=== PATIENT | male | born 1960 | race Caucasian/White ===

== ENCOUNTER → 2018-07-08 12:22 | Outpatient (CLI) | payer OTHER | END | disposition home or self-care (01) | LOC: D.CT 12:22 | DX: R91.1 Solitary pulmonary nodule (principal) ==

== ENCOUNTER 2018-09-30 07:59 | Inpatient (IN) | payer OTHER ==
[2018-09-30] MEDS ORDERED: LODINE400 MG (08:05)
[2018-09-30] MEDS ORDERED: ALBUTEROL SULF8.5 GM INH (08:05)
[2018-09-30] MEDS ORDERED: DIOVAN160 MG (08:06)
[2018-09-30] MEDS ORDERED: ULTRAM50 MG PO ×2 (08:06→10:50)
[2018-09-30] MEDS ORDERED: OMEPRAZOLE20 M1 (08:06)
[2018-09-30] MEDS ORDERED: ZOCOR20 MG (08:06)
[2018-09-30] MEDS ORDERED: SPIRIVA18 MCG INH ×2 (08:07→10:51)
[2018-09-30] MEDS ORDERED: NASONEX NASAL S17 GM (08:07)
[2018-09-30 09:05] LABS: BASOPHILS 0.2 % (0-2); EOSINOPHILS 0.5 % (0-7); HEMATOCRIT 43.6 % (42.0-54.0); HEMOGLOBIN 15.1 g/dL (13.5-17.5); IMMATURE GRANULOCYTES 0.5 % (0-5); LYMPHOCYTES 12.8 % (15-50); MCHC 34.6 g/dL (31.0-37.0); MCV 86.7 fL (80.0-100.0); MEAN PLATELET VOLUME 10.5 fL (7.4-10.4); MONOCYTES 4.1 % (2-11); NEUTROPHILS 81.9 % (40-80); PLATELET COUNT 256 10x3/uL (130-400); RBC 5.03 10x6/uL (4.20-6.10); RDW 12.7 % (11.5-14.5); WBC 12.4 10x3/uL (4.8-10.8)
[2018-09-30 09:09] LABS: INR 0.93 (0.85-1.17); PROTIME 11.9 SECONDS (11.6-15.0)
[2018-09-30 09:10] LABS: APTT 30.5 SECONDS (22.8-39.4)
[2018-09-30 09:11] LABS: D-DIMER-QUANTITATIVE 0.53 ug/mLFEU (0.20-0.54)
[2018-09-30 09:12] LABS: ALBUMIN 3.6 g/dL (3.4-5.0); ALKALINE PHOSPHATASE 99 U/L (46-116); ALT (SGPT) 50 U/L (10-68); BILIRUBIN - TOTAL 0.39 mg/dL (0.2-1.3); CALC OSMOLALITY 276 mosm/kg (275-300); CALCIUM 8.9 mg/dL (8.5-10.1); CARBON DIOXIDE 27.8 mmol/L (21.0-32.0); CHLORIDE - SERUM 104 mmol/L (98-107); GLUCOSE 110 mg/dL (74-106); PROTEIN - SERUM 7.7 g/dL (6.4-8.2); SODIUM 139 mmol/L (136-145); UREA NITROGEN 8 mg/dL (7-18); eGFR NON AFRICAN AMERICAN 81 mL/min (90-120)
[2018-09-30 09:28] LABS: CKMB 0.9 U/L (0.0-3.6); CREATINE KINASE 48 UL (21-232); PRO BNP 116 pg/mL (0-125); TROPONIN-I < 0.017 ng/mL (0.000-0.060)
[2018-09-30] MEDS ORDERED: MOBIC7.5 MG PO (10:49)
[2018-09-30] MEDS ORDERED: LODINE400 MG PO (10:49)
[2018-09-30] MEDS ORDERED: ALDACTONE25 MG PO (10:50)
[2018-09-30] MEDS ORDERED: DIOVAN160 MG PO (10:50)
[2018-09-30] MEDS ORDERED: OMEPRAZOLE20 M1 PO (10:51)
[2018-09-30] MEDS ORDERED: ZOCOR20 MG PO (10:51)
[2018-09-30] MEDS ORDERED: NASONEX NASAL S17 GM NS (10:53)
--- NOTE | 2018-09-30 11:06 | MORECARE ---
CASE MANAGEMENT DISCHARGE SUMMARY PATIENT: RAYMOND ALBERTS UNIT: [id number] ADM DATE: 09/30/18 AGE: 58 : 58 SEX: M ROOM/BED: D.2102 AUTHOR: ULI SOSA PHYSICIAN: REFERRING PHYSICIAN: ANGELO RODRIGUEZ MD DATE OF SERVICE: 09/30/18 Discharge Plan Patient Name: RAYMOND ALBERTS [facility] [facility] 1960 Planned Disposition: Home Anticipated Discharge Date: 10/02/18 Discharge Date: Expected LOS: 2 Initial Reviewer: [email or web address] Initial Review Date: 09/30/2018 Generated: 09/30/18 12:06 pm Patient Name: RAYMOND ALBERTS Page 93982 at 1106 All edits/amendments must be made on the electronic document DICTATION DATE: 09/30/181105 AUTO EMISSIONS TECHNICIAN: RENZO 09/30/18 1106 RPT#: [id number] DC DATE: STATUS: ADM IN [facility] [address] [place] [address] END OF REPORT
[2018-09-30 11:19] VITALS: BP 156/84
--- NOTE | 2018-09-30 11:33 | MORECARE ---
CASE MANAGEMENT DISCHARGE SUMMARY PATIENT: RAYMOND ALBERTS UNIT: [id number] ADM DATE: 09/30/18 AGE: 58 : 58 SEX: M ROOM/BED: D.2102 AUTHOR: IAN,DOC PHYSICIAN: REFERRING PHYSICIAN: ANGELO RODRIGUEZ MD DATE OF SERVICE: 09/30/18 Discharge Plan Patient Name: RAYMOND ALBERTS Facility: [facility]:[place] : 1960 Planned Disposition: Home Anticipated Discharge Date: 10/02/18 Discharge Date: Expected LOS: 2 Initial Reviewer: [email or web address] Initial Review Date: 09/30/2018 Generated: 09/30/18 12:33 pm DCP- Discharge Planning Updated by [email or web address]: Edwina Plascencia on 09/30/18 10:[address] Patient Name: RAYMOND ALBERTS Admission Status: ER Accout number: [id number] Admission Date: 09-30-2018 : 1960 Admission Diagnosis: Attending: ANGELO RODRIGUEZ Current LOS: 1 Anticipated DC Date: 10-02-2018 Planned Disposition: Home Primary Insurance: [facility] Discharge Planning Comments: CM met with patient to complete initial dc planning assessment. CM educated patient on the CM role and verbal consent given by patient to complete assessment. Patient lives at home with his girlfriend. At discharge patient plans to return home and feels this is a safe discharge. CM discussed availability of home health, rehab services, and medical equipment. Patient reports that Dr. Ricks's office ordered him a nebulizer on Sunday through [email or web address] but it hasn't been delivered at this time. Cm contacted [facility], spoke to Kaia, who reported they did receive and order but it was an incomplete order and they have faxed it back to Dr. Ricks's office. CM called Dr. Ricks's office, spoke to Marcy who stated she did find the order and she would have Dr. Ricks sign it today before he leaves the clinic. GARRISON has notified Keturah JI of this information to ensure it is delivered prior to discharge. nesha reported that the patient has had three days of rocephin injections at their clinic prior to today. Patient denied further dc needs at this time. CM will continue to follow and will assist as needed with dc plans/needs. Migration Agent: Edwina Plascencia RN, [facility] DCPIA - Discharge Planning Initial Assessment Updated by [email or web address]: Edwina Plascencia on 09/30/18 11:28 am * Is the patient Alert and Oriented? Yes * How many steps to enter\exit or inside your home? three * PCP Dr. Ricks * Pharmacy [facility] * Preadmission Environment Home with Family * ADLs Independent * Equipment Other * Other Equipment Blood pressure cuff Nebulizer being ordered by Dr Ricks Office. * List name and contact numbers for known caregivers / representatives who currently or will assist patient after discharge: Ger Dozier- girlfriend - [phone] * Verbal permission to speak to the caregivers and representatives has been obtained from the patient. Yes * Community resources currently utilized None * Additional services required to return to the preadmission environment? Yes * Can the patient safely return to the preadmission environment? Yes * Has this patient been hospitalized within the prior 30 days at any hospital? No Last DP export: 09/30/18 10:06 a Patient Name: RAYMOND ALBERTS Page 18310 at 1133 All edits/amendments must be made on the electronic document DICTATION DATE: 09/30/181131 ENGINE BOSS: RENZO 09/30/181131 RPT#: [id number] DC DATE: STATUS: ADM IN [facility] [address] [place] [address] END OF REPORT
[2018-09-30 14:01] VITALS: BMI 25.1
[2018-09-30 14:46] VITALS: BP 144/80
[2018-09-30 15:02] LABS: CKMB 0.7 U/L (0.0-3.6); CREATINE KINASE 44 UL (21-232); TROPONIN-I < 0.017 ng/mL (0.000-0.060)
[2018-09-30 20:00] VITALS: BP 149/84
[2018-09-30 20:34] LABS: CKMB 1.2 U/L (0.0-3.6); CREATINE KINASE 37 UL (21-232)
[2018-09-30 20:42] LABS: TROPONIN-I < 0.017 ng/mL (0.000-0.060)
[2018-10-01 00:59] VITALS: BP 114/66
[2018-10-01 02:11] LABS: CKMB 1.4 U/L (0.0-3.6); CREATINE KINASE 37 UL (21-232); TROPONIN-I 0.032 ng/mL (0.000-0.060)
[2018-10-01 05:49] VITALS: BP 105/64
[2018-10-01 07:30] LABS: BASOPHILS 0.1 % (0-2); EOSINOPHILS 0 % (0-7); HEMATOCRIT 41.4 % (42.0-54.0); HEMOGLOBIN 13.9 g/dL (13.5-17.5); IMMATURE GRANULOCYTES 0.6 % (0-5); LYMPHOCYTES 5.5 % (15-50); MCH 29.3 pg (26.0-34.0); MCHC 33.6 g/dL (31.0-37.0); MCV 87.2 fL (80.0-100.0); MEAN PLATELET VOLUME 10.6 fL (7.4-10.4); MONOCYTES 2.4 % (2-11); NEUTROPHILS 91.4 % (40-80); PLATELET COUNT 282 10x3/uL (130-400); RBC 4.75 10x6/uL (4.20-6.10); RDW 12.9 % (11.5-14.5)
[2018-10-01 07:40] LABS: WBC 19.7 10x3/uL (4.8-10.8)
[2018-10-01 07:42] LABS: ALBUMIN 3.3 g/dL (3.4-5.0); ALKALINE PHOSPHATASE 91 U/L (46-116); ALT (SGPT) 39 U/L (10-68); BILIRUBIN - TOTAL 0.16 mg/dL (0.2-1.3); CALC OSMOLALITY 288 mosm/kg (275-300); CALCIUM 8.5 mg/dL (8.5-10.1); CARBON DIOXIDE 23.8 mmol/L (21.0-32.0); CHLORIDE - SERUM 108 mmol/L (98-107); CKMB 1.7 U/L (0.0-3.6); CREATINE KINASE 38 UL (21-232); GLUCOSE 152 mg/dL (74-106); POTASSIUM - SERUM 3.8 mmol/L (3.5-5.1); PROTEIN - SERUM 7.1 g/dL (6.4-8.2); SODIUM 144 mmol/L (136-145); TROPONIN-I 0.035 ng/mL (0.000-0.060); UREA NITROGEN 11 mg/dL (7-18); eGFR NON AFRICAN AMERICAN 81 mL/min (90-120)
[2018-10-01 10:25] VITALS: BP 121/67
[2018-10-01] MEDS ORDERED: MUCINEX DM ER1 EAC1 PO (11:46)
[2018-10-01] MEDS ORDERED: SINGULAIR10 MG PO (11:46)
[2018-10-01] MEDS ORDERED: DALIRESP500 MCG PO (11:46)
[2018-10-01] MEDS ORDERED: PREDNISONE10 MG PO (11:47)
[2018-10-01] MEDS ORDERED: DOXYCYCLINE HY100 M2 PO (11:47)
[2018-10-01] MEDS ORDERED: Tessalon Perle PO (11:47)
[2018-10-01] MEDS ORDERED: TESSALON PERLE100 MG PO (11:49)
[2018-10-01] MEDS ORDERED: BUTALB-APAP-CA1 EACH PO (12:24)
[2018-10-01 15:55] VITALS: BP 132/65
--- NOTE | 2018-10-02 08:04 | MORECARE ---
CASE MANAGEMENT DISCHARGE SUMMARY PATIENT: RAYMOND ALBERTS UNIT: [id number] ADM DATE: 09/30/18 AGE: 58 : 58 SEX: M ROOM/BED: D.2102 AUTHOR: IAN,DOC PHYSICIAN: REFERRING PHYSICIAN: ANGELO RODRIGUEZ MD DATE OF SERVICE: 10/02/18 Discharge Plan Patient Name: RAYMOND ALBERTS Facility: [facility]:[place] : 1960 Planned Disposition: Home Anticipated Discharge Date: 10/01/18 Discharge Date: 10/01/2018 Expected LOS: 1 Initial Reviewer: [email or web address] Initial Review Date: 09/30/2018 Generated: 10/02/18 9:04 am DCP- Discharge Planning Updated by [email or web address]: Edwina Plascencia on 09/30/18 10:[address] Patient Name: RAYMOND ALBERTS Admission Status: ER Accout number: [id number] Admission Date: 09-30-2018 : 1960 Admission Diagnosis: Attending: ANGELO RODRIGUEZ Current LOS: 1 Anticipated DC Date: 10-02-2018 Planned Disposition: Home Primary Insurance: [facility] Discharge Planning Comments: CM met with patient to complete initial dc planning assessment. CM educated patient on the CM role and verbal consent given by patient to complete assessment. Patient lives at home with his girlfriend. At discharge patient plans to return home and feels this is a safe discharge. CM discussed availability of home health, rehab services, and medical equipment. Patient reports that Dr. Ricks's office ordered him a nebulizer on Sunday through [facility] but it hasn't been delivered at this time. Cm contacted [facility], spoke to Kaia, who reported they did receive and order but it was an incomplete order and they have faxed it back to Dr. Ricks's office. CM called Dr. Ricks's office, spoke to Marcy who stated she did find the order and she would have Dr. Ricks sign it today before he leaves the clinic. GARRISON has notified Keturah JI of this information to ensure it is delivered prior to discharge. Marcy reported that the patient has had three days of rocephin injections at their clinic prior to today. Patient denied further dc needs at this time. CM will continue to follow and will assist as needed with dc plans/needs. Want Ad Supervisor: Edwina Plascencia RN, [facility] [place] DCPIA - Discharge Planning Initial Assessment Updated by [email or web address]: Edwina Plascencia on 09/30/18 11:28 am * Is the patient Alert and Oriented? Yes * How many steps to enter\exit or inside your home? three * PCP Dr. Ricks * Pharmacy [facility] * Preadmission Environment Home with Family * ADLs Independent * Equipment Other * Other Equipment Blood pressure cuff Nebulizer being ordered by Dr Ricks Office. * List name and contact numbers for known caregivers / representatives who currently or will assist patient after discharge: Ger Dozier- girlfriend - [phone] * Verbal permission to speak to the caregivers and representatives has been obtained from the patient. Yes * Community resources currently utilized None * Additional services required to return to the preadmission environment? Yes * Can the patient safely return to the preadmission environment? Yes * Has this patient been hospitalized within the prior 30 days at any hospital? No Last DP export: 09/30/18 10:33 a Patient Name: RAYMOND ALBERTS Page 68329 at 0804 All edits/amendments must be made on the electronic document DICTATION DATE: 10/02/18803 ALLERGY AND IMMUNOLOGY SPECIALIST: RENZO 10/02/18803 RPT#: [id number] DC DATE:10/01/18 STATUS: DIS IN [facility] [id number] [place] [address] END OF REPORT
[2018-10-02 11:14] LABS: IMMUNOGLOBULIN A 156 mg/dL (90-386)
[2018-10-02 15:11] LABS: ANA REFLEX - DIRECT Negative (Negative)
[2018-10-03 03:07] LABS: ANGIOTENSIN CONVERTING ENZYME 18 U/L (14-82)
[2018-10-05 06:11] LABS: IGG SUBCLASS 1 574 mg/dL (248-810); IGG SUBCLASS 2 363 mg/dL (130-555); IGG SUBCLASS 3 30 mg/dL (15-102); IGG SUBCLASS 4 26 mg/dL (2-96)
== END 2018-10-01 16:30 | disposition home or self-care (01) | DRG 190 ==
LOC: D.ER 07:59 → D.EDHOLD 09:37 → D.M2 09:43
PROVIDERS: Family Medicine; Internal Medicine Pulmonary Disease; ADMIT Internal Medicine Nephrology
DX: J44.0 Chronic obstructive pulmonary disease with (acute) lower respiratory infection (principal); J18.1 Lobar pneumonia, unspecified organism; J98.11 Atelectasis; J44.1 Chronic obstructive pulmonary disease with (acute) exacerbation; I10 Essential (primary) hypertension; E78.5 Hyperlipidemia, unspecified; K21.9 Gastro-esophageal reflux disease without esophagitis; J30.9 Allergic rhinitis, unspecified; R91.8 Other nonspecific abnormal finding of lung field; Z87.891 Personal history of nicotine dependence

== ENCOUNTER → 2018-10-09 08:41 | Outpatient (CLI) | payer OTHER ==
[2018-09-30 14:01] VITALS: BMI 25.1
[~2018-10-09 08:41] MED LIST: ALBUTEROL SULF8.5 GM INH; ALDACTONE25 MG PO; BUTALB-APAP-CA1 EACH PO; DALIRESP500 MCG PO; DIOVAN160 MG; DIOVAN160 MG PO; DOXYCYCLINE HY100 M2 PO; LODINE400 MG; LODINE400 MG PO; MOBIC7.5 MG PO; MUCINEX DM ER1 EAC1 PO; NASONEX NASAL S17 GM; NASONEX NASAL S17 GM NS; OMEPRAZOLE20 M1; OMEPRAZOLE20 M1 PO; PREDNISONE10 MG PO; SINGULAIR10 MG PO; SPIRIVA18 MCG INH; TESSALON PERLE100 MG PO; Tessalon Perle PO; ULTRAM50 MG PO; ZOCOR20 MG; ZOCOR20 MG PO
[2018-10-13 16:06] LABS: FUNGAL - ASP FLAVUS Negative (Neg:<1:1); FUNGAL - ASP NIGER Negative (Neg:<1:1); FUNGAL - ASPER FUMIGATUS Negative (Neg:<1:1)
== END | disposition home or self-care (01) ==
LOC: D.RT 08:41
PROVIDERS: ATTEND Internal Medicine Pulmonary Disease
DX: J44.9 Chronic obstructive pulmonary disease, unspecified (principal)

== ENCOUNTER → 2019-04-11 09:09 | Outpatient (CLI) | payer OTHER | END | disposition home or self-care (01) | LOC: D.RT 09:09 | PROVIDERS: ATTEND Internal Medicine Pulmonary Disease | DX: J44.9 Chronic obstructive pulmonary disease, unspecified (principal); R91.8 Other nonspecific abnormal finding of lung field ==

== ENCOUNTER → 2019-04-18 14:04 | Outpatient (CLI) | payer OTHER | END | disposition home or self-care (01) | LOC: D.RAD 14:04 | PROVIDERS: ATTEND Orthopaedic Surgery | DX: M75.122 Complete rotator cuff tear or rupture of left shoulder, not specified as traumatic (principal) ==

== ENCOUNTER → 2019-10-17 15:07 | Outpatient (CLI) | payer OTHER | END | disposition home or self-care (01) | LOC: D.CT 15:07 | PROVIDERS: ATTEND Internal Medicine Pulmonary Disease | DX: R91.8 Other nonspecific abnormal finding of lung field (principal) ==

== ENCOUNTER 2020-01-15 11:06 | Emergency (ER) | payer OTHER ==
[~2020-01-15] VITALS: Ht 180.3 cm; Wt 94.1 kg
[2020-01-15 11:13] VITALS: Ht 180.3 cm; Wt 94.1 kg
[2020-01-15 11:40] LABS: BASOPHILS 0.5 % (0-2); EOSINOPHILS 1.3 % (0-7); HEMATOCRIT 43.2 % (42.0-54.0); HEMOGLOBIN 13.9 g/dL (13.5-17.5); IMMATURE GRANULOCYTES 0.4 % (0-5); LYMPHOCYTES 18.3 % (15-50); MCH 28.6 pg (26.0-34.0); MCHC 32.2 g/dL (31.0-37.0); MCV 88.9 fL (80.0-100.0); MEAN PLATELET VOLUME 9.7 fL (7.4-10.4); MONOCYTES 6.4 % (2-11); NEUTROPHILS 73.1 % (40-80); PLATELET COUNT 202 10x3/uL (130-400); RBC 4.86 10x6/uL (4.20-6.10); RDW 13.8 % (11.5-14.5); WBC 9.4 10x3/uL (4.8-10.8)
[2020-01-15 11:50] LABS: CALC OSMOLALITY 279 mosm/kg (275-300); CALCIUM 9.4 mg/dL (8.5-10.1); CARBON DIOXIDE 28.2 mmol/L (21.0-32.0); CHLORIDE - SERUM 104 mmol/L (98-107); CREATININE - SERUM 1.2 mg/dL (0.6-1.3); GLUCOSE 108 mg/dL (74-106); INR 0.82 (0.85-1.17); POTASSIUM - SERUM 3.9 mmol/L (3.5-5.1); PROTIME 11.2 SECONDS (11.6-15.0); SODIUM 138 mmol/L (136-145); UREA NITROGEN 21 mg/dL (7-18); eGFR NON AFRICAN AMERICAN 66 mL/min (90-120)
[2020-01-15 11:51] LABS: APTT 31.5 SECONDS (22.8-39.4)
[2020-01-15 11:52] LABS: D-DIMER-QUANTITATIVE 0.35 ug/mLFEU (0.20-0.54)
[2020-01-15 12:05] LABS: ALBUMIN 3.7 g/dL (3.4-5.0); ALKALINE PHOSPHATASE 85 U/L (30-120); ALT (SGPT) 46 U/L (10-68); BILIRUBIN - TOTAL 0.57 mg/dL (0.2-1.3); CKMB 3.6 U/L (0.0-3.6); CREATINE KINASE 167 UL (21-232); PRO BNP 46 pg/mL (0-125); PROTEIN - SERUM 7.4 g/dL (6.4-8.2); TROPONIN-I < 0.017 ng/mL (0.000-0.060)
[2020-01-15] MEDS ORDERED: ULTRAM50 MG PO (13:01)
[2020-01-15] MEDS ORDERED: PREDNISONE20 MG PO (13:02)
[2020-01-15 13:21] VITALS: BP 122/69
== END 2020-01-15 13:21 | disposition home or self-care (01) ==
LOC: D.ER 11:06
PROVIDERS: Family Medicine
DX: J44.1 Chronic obstructive pulmonary disease with (acute) exacerbation (principal); R07.89 Other chest pain; I10 Essential (primary) hypertension; R06.00 Dyspnea, unspecified